=== PATIENT | female | born 1980 | race Caucasian/White ===

== ENCOUNTER → 2017-11-22 | Outpatient (CLI) | payer OTHER ==
[~2017-11-22] MED LIST: ACET-1311 PO; ALBUAER INH; ATV1 PO; LEVO5TAB2 PO; MONT1TAB3 PO; RXC5 PO; [UNRECOGNIZED DRUG - OTHER] PO
--- NOTE | 2017-11-22 14:07 | DIAGNOSTIC IMAGING REPORT ---
R FOOT MIN 3 VIEWS ROUTINE CLINICAL HISTORY: Right foot pain. COMPARISON: None FINDINGS: Tarsometatarsal joints are intact. There is smooth periosteal thickening of the distal shaft of the right third metatarsal. This suggests a healing stress fracture. No additional fractures are identified. There are no erosions. There is minimal posterior calcaneal spurring. IMPRESSION: Smooth periosteal thickening of the mid to distal shaft of the right third metatarsal suggestive of a healing stress fracture. Electronically signed by: Brenton Nichols M.D. 11/22/2017 2:05 PM Dictated Date/Time: 11/22/2017 1:46 PM
== END | disposition home or self-care (01) ==
LOC: C.RADPV 13:17
PROVIDERS: ATTEND Family Medicine
DX: M79.671 Pain in right foot (principal); M89.9 Disorder of bone, unspecified

== ENCOUNTER → 2018-02-21 | Outpatient (CLI) | payer OTHER ==
--- NOTE | 2018-02-21 08:09 | DIAGNOSTIC IMAGING REPORT ---
SOFT TISS HEAD/NECK-THYROID HISTORY: Enlarged thyroid E04.9 Enlarged [id number] COMPARISON: None. FINDINGS: Right lobe: Maximum dimension 4.0 cm no significant nodularity Left lobe: Maximum dimension 3.7 cm. No significant nodularity Isthmus: No nodules. IMPRESSION: Normal thyroid ultrasound. The above report was generated using voice recognition software. It may contain grammatical, syntax or spelling errors. Electronically signed by: Philip Watson M.D. 02/21/2018 8:08 AM Dictated Date/Time: 02/21/2018 8:07 AM
== END | disposition home or self-care (01) ==
LOC: C.ULTR 07:36
PROVIDERS: ATTEND Nurse Practitioner Family
DX: E04.9 Nontoxic goiter, unspecified (principal)